=== PATIENT | male | born 1975 | race Caucasian/White ===

== ENCOUNTER → 2020-08-01 | Outpatient (CLI) | payer BC ==
--- NOTE | 2020-08-01 10:06 | Diagnostic Imaging Report ---
PROCEDURE: CT urinary tract, rule out kidney stone. TECHNIQUE: Multiple contiguous axial images were obtained through the abdomen and pelvis without the use of intravenous contrast. Auto Exposure Controls were utilized during the CT exam to meet ALARA standards for radiation dose reduction. INDICATION: Gross hematuria, right flank pain. COMPARISON: None available. FINDINGS: The visualized lung bases are clear. Diffusely decreased density of the liver. The liver is mildly enlarged. The spleen is unremarkable. The adrenal glands are unremarkable. The pancreas is unremarkable. The gallbladder is unremarkable. The right kidney and ureter are unremarkable. The left kidney and ureter are unremarkable. Minimal vascular calcifications without aneurysmal dilatation of the abdominal aorta. The appendix is unremarkable. Tiny fat-containing umbilical hernia. The urinary bladder is unremarkable. The bowel is unremarkable without evidence of obstruction or pneumatosis. No significant adenopathy, free air, or free fluid within the abdomen or pelvis. No acute osseous abnormality with scattered osseous degenerative changes are present. There is resulting at least mild central canal stenosis at L4/L5. IMPRESSION: No acute abnormality with additional chronic findings, as described above. No evidence of renal or ureteral calculi. Mild hepatomegaly with associated fatty infiltration of the liver. Dictated by: Dictated on workstation # [id number]
== END ==
LOC: RAD FS 09:36
PROVIDERS: ATTEND Nurse Practitioner
DX: K76.0 Fatty (change of) liver, not elsewhere classified (principal); R31.0 Gross hematuria; R30.9 Painful micturition, unspecified
CPT/HCPCS: 74176